=== PATIENT | female | born 1995 | race Caucasian/White ===

== ENCOUNTER → 2018-09-05 06:42 | Observation (INO) ==
[2018-09-05 05:53] LABS: Amphetamine Screen,Urine Negative ng/mL (Cutoff=1000); Barbiturate Screen,Urine Negative ng/mL (Cutoff=200); Benzodiazepines Screen,Urine Negative ng/mL (Cutoff=200); Cannabinoid Screen,Urine Negative ng/mL (Cutoff = 50); Cocaine Screen,Urine Negative ng/mL (Cutoff= 300); Opiate Screen,Urine Negative ng/mL (Cutoff=300); Phencyclidine Screen,Urine Negative ng/mL (Cutoff=25)
--- NOTE | 2018-09-05 06:43 | Discharge Summary ---
Date of Encounter: 09/05/18 Time of Encounter: 06:42 - Discharge Diagnosis (1) 38 weeks gestation of Priority: Primary Status: Acute Comments: Admit to observation for labor evaluation (2) NST (non-stress test) reactive Priority: Secondary Status: Acute Comments: FHR 125 bpm, moderate variability, +15x15 accels, no decels. (3) Uterine contractions during Priority: Secondary Status: Acute Comments: No cervical change in one hour. Irregular contractions - Discharge Medications Prescriptions: No Action Formula Tablet 1 tab PO DAILY Home Medications: Formula Tablet 1 tab PO DAILY 09/05/18 [History] Allergies/Adverse Reactions: Allergy/AdvReac Type Severity Reaction Status Date / Time No Known Allergies Allergy Verified 09/05/18 05:22 Data Procedures and tests throughout hospitalization: Laboratory Tests 09/05/18 05:23 Urine Opiates Screen Negative Ur Barbiturates Screen Negative Ur Phencyclidine Scrn Negative Ur Amphetamines Screen Negative U Benzodiazepines Scrn Negative Urine Cocaine Screen Negative U Marijuana (THC) Screen Negative Ur Drug Screen Interp See Below Labs on day of discharge: Labs from last 24 hours 09/05/18 05:23 Urine Opiates Screen Negative Ur Barbiturates Screen Negative Ur Phencyclidine Scrn Negative Ur Amphetamines Screen Negative U Benzodiazepines Scrn Negative Urine Cocaine Screen Negative U Marijuana (THC) Screen Negative Ur Drug Screen Interp See Below Date of admission: 09/05/18 04:44 Discharging clinician: Yisel Richardson Anticipated date of discharge: 09/05/18 - Patient Status Disposition: Home, Self-Care Condition: Good Functional capacity at discharge: independent ambulation Overall status at discharge: patient is progressing back to baseline - Discharge Instructions Additional Instructions: LABOR AND DELIVERY DISCHARGE INSTRUCTIONS Signs and Symptoms to be Reported to your Doctor Immediately: * Sudden gush, continuous or intermittent lead of fluid from vagina (note the time of gush and color of fluid) * Onset of bright red vaginal bleeding with or without pain (if you had a vaginal exam during this visit you may notice some dark red spotting. This is normal.) * Contractions that are 5 minutes apart (from the beginning of one contraction to the beginning of the next) and last 45-60 seonds; contractions that you can no longer walk, talk or laugh through. * A change in the baby's activity. This could be an increase or decrease in activity. * Severe headache which does not go away with tylenol. * Sudden swelling in the face, hands, arms and/or legs. * Upper abdominal pain - sometimes associated with heartburn or nausea and is not relieved by Maalox, Mylanta or Tums. * Kick Counts __ One hour after a meal, lay down on one side in a quiet place. Count the number of time the baby moves during an hour. 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 She does report positive movement, denies vaginal bleeding and fluid leakage. She made no cervical change while she was here and contractions irregular. She is to follow up as scheduled for routine care. Time Attestation: Total time spent providing and/or coordinating discharge services: Time Spent: Less than 30 minutes Exam - Constitutional General appearance IM: A&O X 3, pleasant, no acute distress, answers questions appropriately - Respiratory Respiratory exam: Present: CTAB - Cardiovascular Cardiovascular exam IM: Present: RRR, +S1, +S2 - GI/Abdominal GI/Abdominal exam IM: normal bowel sounds, soft - Rectal Rectal exam: deferred - External exam: normal external exam - Extremities Exam Extremities exam IM: Present: full ROM, normal capillary refill, normal inspection - Neurological Exam Neurological exam: alert, normal gait, oriented X3 - VTE Reasons for not Prescribing Prophylaxis: Treatment not Indicated - Low risk for VTE
== END | disposition home or self-care (01) ==
LOC: 1NENULAB
PROVIDERS: ADMIT Registered Nurse; ATTEND Registered Nurse

== ENCOUNTER 2018-09-09 05:59 | Inpatient (IN) ==
[2018-09-09] MEDS ORDERED: Naloxone 0.4 MG/ML INJ IVP PRN (06:13)
[2018-09-09] MEDS ORDERED: Ondansetron 4 MG/2 ML VIAL IVP PRN (06:13)
[2018-09-09] MEDS ORDERED: Metoclopramide 10 MG/2 ML VIAL IVP PRN (06:13)
[2018-09-09] MEDS ORDERED: *HR* Nalbuphine 10 MG/ML AMPUL IVP PRN (06:13)
[2018-09-09] MEDS ORDERED: Famotidine 20 MG/2 ML VIAL IVP PRN (06:13)
[2018-09-09] MEDS ORDERED: Ringers Solution, Lactated 1,000 ML IVC SCH (06:15)
[2018-09-09] MEDS ORDERED: Oxytocin 20 units/ LR 1000 mL 20 UNIT/1,000 ML BAG IVC SCH ×2 (06:15→22:00)
[2018-09-09] MEDS ORDERED: Ringers Solution, Lactated 1,000 ML ONE (06:36)
--- NOTE | 2018-09-09 06:41 | Anesthesia Evaluation PreOp ---
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) Other Medical History: Denies Any Significant HX Anesthesia History: No Prior Anesthetic Complications, Past Anesthesia (no family hx.) Alcohol Use: none Drug use: none Medications and Allergies Formula Tablet 1 tab PO DAILY 09/05/18 [History] Allergy/AdvReac Type Severity Reaction Status Date / Time No Known Allergies Allergy Verified 09/05/18 05:22 Anesthesia Exam - HEENT Pupil (Motor): Pupils equal Mallampati: II Teeth: Normal Oral Opening: Greater than 3 - WALLPAPER EMBOSSER HELPER LOC: Oriented WALLPAPER EMBOSSER HELPER Motor: Normal RUE, Normal LUE, Normal RLE, Normal LLE, Normal Face WALLPAPER EMBOSSER HELPER Sensory: Normal: RUE, LUE, RLE, LLE, Face - Cardiac Rhythm: Regular Murmur: None - Pulmonary Breath Sounds: bilateral Clear Respiratory Effort: Symmetrical Anesthesia Assess/Plan ASA Score: 2 Level of consciousness: Cooperative, Oriented Anesthetic Plan: General, Spinal, Epidural Monitoring Plan: Standard Monitors Recovery Plan: PACU
[2018-09-09] MEDS ORDERED: Epidural Premix (fent/bupiv) 110 ML EP SCH (07:00)
[2018-09-09 07:06] LABS: Basophils % 0.3 %; Eosinophils # 0.1 K/mcL (0.0-0.6); Eosinophils % 0.9 %; Hematocrit 32.2 % (35.3-44.9); Hemoglobin 10.7 g/dL (11.5-15.4); Lymphocytes # 2.8 K/mcL (0.6-4.6); Lymphocytes % 24.5 %; Mean Corpuscular HGB Conc 33.2 g/dL (31.6-35.5); Mean Corpuscular Hemoglobin 26.6 pg (28.0-33.3); Mean Corpuscular Volume 80.1 fL (83.0-100.0); Mean Platelet Volume 11.1 fL (9.4-12.4); Monocytes # 0.8 K/mcL (0.0-1.3); Monocytes % 6.9 %; Neutrophils # 7.5 K/mcL (1.6-8.9); Platelet Count 285 K/mcL (140-400); Red Blood Count 4.02 M/mcL (3.82-4.97); Red Cell Distribution Width 13.8 % (11.5-14.5); Segmented Neutrophils % 66.4 %
[2018-09-09 07:12] LABS: Amphetamine Screen,Urine Negative ng/mL (Cutoff=1000); Barbiturate Screen,Urine Negative ng/mL (Cutoff=200); Benzodiazepines Screen,Urine Negative ng/mL (Cutoff=300); Cannabinoid Screen,Urine Negative ng/mL (Cutoff = 50); Cocaine Screen,Urine Negative ng/mL (Cutoff= 300); Opiate Screen,Urine Negative ng/mL (Cutoff=300); Phencyclidine Screen,Urine Negative ng/mL (Cutoff=25)
--- NOTE | 2018-09-09 08:21 | OB/GYN History & Physical ---
Date of Encounter: 09/09/18 Time of Encounter: 08:03 Assessment and Plan (1) 39 weeks gestation of Current visit: Yes Status: Acute (2) Encounter for elective induction of labor Current visit: Yes Status: Acute Risks, benefits, and alternatives again discussed with the patient. Informed consent previously obtained in the office. Procedure for mackey induction discussed with the patient. Mackey catheter is placed transcervically and balloon inflated with 40 ml sterile water just proximal to the internal os History of Present Illness Chief complaint: Patient presents for induction of labor HPI: Ms. Marks is a 23 year old female G 1 at 39 0/7 weeks presents to labor and delivery for induction of labor at 39 weeks. She denies any regular contractions, vaginal bleeding, or leaking fluid. She reports good movement. Her has been uncomplicated. Labs: GBS negative 1 hour GTT 115 Rubella Immune Varicella Immune HIV negative Hep B negative T. pallidum negative Past Med Surg Social Fam HX - Past Medical History Source: patient Medical history: migraine Psychiatric history: no psych history - Past Surgical History Surgical History: no surgical history - Social History Smoking Status: Never smoker Smokeless Tobacco Status: No Alcohol use: none Drug use: none - Family History Father Adopted: No Family Member Ethnicity: Non- Living Status: Still Living Hx Family Cardiac Disorders: Yes Hx Family Respiratory Disorders: No Hx Family Cancer: No Hx Family GI Disorders: No Hx Family Genitourinary Disorders: No Hx Family Endocrine Disorder: No Hx Family Musculoskeletal Disorders: No Hx Family Neuromuscular Disorders: No Hx Family Neurologic Disorders: No Hx Family HEENT Disorders: No Hx Family Autoimmune Disorders: No Hx Family Reproductive Disorders: No Hx Family Psychosocial Disorders: No Hx Family Medical Disorders: No Obstetrical History - Pregnancies : 1 Medications and Allergies Formula Tablet 1 tab PO DAILY 09/05/18 [History] SUMAtriptan succinate [Imitrex] 50 mg PO Q2H 09/09/18 [History] Allergy/AdvReac Type Severity Reaction Status Date / Time No Known Allergies Allergy Verified 09/05/18 05:22 Review of System OB All systems PM: reviewed and no additional remarkable complaints except as stated - Constitutional Constitutional ROS IM: no chills, no fever(s) - Cardiovascular Cardiovascular: no chest pain - Respiratory Respiratory: no dyspnea on exertion - Gastrointestinal Gastrointestinal: no abdominal pain, no nausea, no vomiting - Genitourinary Genitourinary: amenorrhea, no flank pain, no genital lesions, no genital pruritis Exam - Constitutional Constitutional: well developed, well nourished, no acute distress, average body habitus - HEENT HEENT: EOMI - Lungs Respiratory exam: CTAB - Cardiovascular Cardiovascular exam: RRR - Abdomen Abdomen: Present: bowel sounds normal, gravid, non tender - Vulva Vulva: bilateral: normal - Vagina Vagina: Present: normal moisture - Cervix Dilation: 2 Effacement: 70 Station: -2 Results Result Diagrams: 09/09/18 06:57 Abnormal lab results WBC 11.2 K/mcL (4.3-11.1) H 09/09/18 06:57 Hgb 10.7 g/dL (11.5-15.4) L 09/09/18 06:57 Hct 32.2 % (35.3-44.9) L 09/09/18 06:57 MCV 80.1 fL (83.0-100.0) L 09/09/18 06:57 MCH 26.6 pg (28.0-33.3) L 09/09/18 06:57 All other labs normal. US - abdomen: report reviewed (EFW on 09/07/2018 7 lb 14 oz (84%), LAUREEN 15 cm, cephalic), image reviewed - VTE Reasons for not Prescribing Prophylaxis: Treatment not Indicated - Low risk for VTE
[2018-09-09] MEDS ORDERED: Lidocaine -MPF 1% 5 ML AMPUL ONE (11:36)
--- NOTE | 2018-09-09 16:18 | OB Labor Progress Note ---
Date of Encounter: 09/09/18 Time of Encounter: 16:16 Labor Progress Note - Subjective Subjective: Patient reports contractions are manageable - Cervix Cervix: 6/70/-2 - Heart Tones Heart Tones: heart rate category I - Loiza Loiza: Contractions every 2-5 minutes and palpate medium - Interventions Interventions: SVE AROM for moderate amount of clear fluid IUPC placed - Plan Physician notified: Yes Physician notified details: Dr. Pina updated on status of her patient Plan: Continue induction management Frequent position changes with peanut ball Anticipate vaginal delivery
--- NOTE | 2018-09-09 17:21 | Anesthesia Procedures ---
Addendum entered and electronically signed by Steve Vyas CRNA 09/09/18 22:01: Delivery Date: 09/09/18 Infant Delivery Time: 21:12 Original Note: Date of Encounter: 09/09/18 Time of Encounter: 17:20 Procedures: Anesthesia - Epidural/Spinal Patient ID/Chart reviewed: Yes Patient examined: Yes OB Eval: Gestational age: 39 OB Eval: : 1 OB Eval: Hx Para: 0 OB Eval: Dilated at (cm): 6 OB Eval: Contractions: Non-stressed pattern Consent Obtained: Yes Supplemental Oxygen: None/Room Air Site Prep: Aseptic Technique, Sterile prep and drape, Povidone-Iodine 1% Patient position: upright Local Anesthetic: Lidocaine 1% Amount of Local Anesthetic used: 3 Touhy Needle Gauge: 18 Touhy Needle Depth (cm): 9 Catheter Depth at Skin (cm): 20 Test Dose (1.5% Lido + Epi): Volume given (mls): 5 Test Dose Result: Negative Loading Dose: Other: 10mls of epidural pharm bag premix solution Loading Dose Administered: Thru Catheter Infusion Med: 0.125% Bupivacaine w/ 2 mcg/ml Fentanyl Infusion Rate (mls/hr): 14 ([id number]) Catheter Secured in Place: Tegaderm, Tape Interspace Used: L3-L4 Loss of Resistance (NIRAJ): Yes Blood: No CSF: No Paresthesia: No Procedure: pt tolerated procedure well. no complications. vss. fhr stable.
[2018-09-09] MEDS ORDERED: *HR* Ropivacaine/PF 0.2% 20 ML VIAL ONE (17:23)
[2018-09-09] MEDS ORDERED: Lidocaine/EPI 1:200k 2% PF 20 ML VIAL ONE (17:34)
[2018-09-09] MEDS ORDERED: *HR* FentaNYL (PF) 100 MCG/2 ML VIAL ONE (17:34)
--- NOTE | 2018-09-09 17:42 | Anesthesia Progress Note ---
Date of Encounter: 09/09/18 Time of Encounter: 17:41 Anesthesia Note - Note Note: 09/09/18 17:41 called for increased pain during contractions. pain 7/10. bolus of 4ml of 2% lidocaine and 4ml of 0.2% ropivacaine and 100mcg fentanyl given after negative aspiration. gtt increased to 18ml/hr.
--- NOTE | 2018-09-09 21:49 | OB/GYN Procedure Note ---
Delivery - Delivery Date: 09/09/18 Provider: Zhane Pina Intrapartum events: none Delivery induction: AROM, oxytocin, mackey Delivery monitor: external FHT, external uterine, internal uterine Anesthesia: epidural Quantitated Blood Loss: 200 - (s) Infant A Infant Delivery Date: 09/09/18 Infant Delivery Time: 21:12 Presentation: vertex Position: GERMAN Route of delivery: Gender: Female Viability: Viable Pounds: 7 Ounces: 12 Weight Gram: 3.52 kg at 1 minute: 8 at 5 mins: 9 Shoulder Dystocia: not encountered Specimens collected: cord blood Placenta: spontaneous Cord: 3 umbilical vessels - Repair Episiotomy: none Laceration Description: Perineal - 2nd Degree - Complications Delivery complications: none Delivery comments: Called to room with patient complete and +2 station. Under maternal effort she delivered a viable female weighing 7 lbs. 12 oz. and Apgars 8 and 9 at one and 5 minutes respectively over second-degree perineal laceration. Following delivery of the head there was no nuchal cord or shoulder dystocia encountered. Infant delivered with maternal effort and was placed on mom's abdomen. Cord was allowed to cease pulsations and then was double clamped and cut with assistance from the father of the baby. Cord blood was collected. Placenta delivered spontaneously, complete, and intact with a three-vessel cord. Second-degree perineal laceration was repaired using 201 3-0 Vicryl in standard fashion. Bilateral periurethral lacerations were noted and hemostatic without repair. Rectal exam was performed to ensure integrity. Sponge and needle counts are correct at the end of procedure. Mother and infant are recovering in the LDR in stable condition. - Disposition Mom disposition: stable in LDR disposition: stable in LDR
[2018-09-09] MEDS ORDERED: Acetaminophen 325 MG TABLET PO PRN (22:00)
[2018-09-09] MEDS ORDERED: Oxytocin 20 units/ LR 1000 mL 20 UNIT/1,000 ML BAG IVC ONE (22:04)
[2018-09-10] MEDS ORDERED: Benzocaine/Menthol 56 GM AEROSOL SPRAY TP PRN (00:55)
[2018-09-10] MEDS: Prenatal Vit/FA 1 EACH TABLET PO SCH (07:48)
[2018-09-10] MEDS: Ibuprofen 600 MG TABLET PO PRN ×2 (09:54→19:05)
--- NOTE | 2018-09-10 13:56 | OB/GYN Progress Note ---
Date of Encounter: 09/10/18 Time of Encounter: 13:52 - Assessment and Plan (1) Vaginal delivery Current Visit: Yes Status: Acute Stable PPD#1 Continue current management Anticipate discharge tomorrow Subjective - Subjective Patient reports: appetite normal, voiding normally, pain well controlled, ambulating normally Objective - Latest Vital Signs Latest vital signs: Vital Signs Temp Pulse Resp BP Pulse Ox 09/10/18 02:15 98.8 F 108 18 119/72 98 09/10/18 01:15 99.9 F H 102 18 115/71 99 09/10/18 00:15 98.4 F 91 16 121/76 98 Intake and Output 09/09/18 09/10/18 09/10/18 23:59 07:59 15:59 Output Total 800 / 800 Balance -800 / -800 Output: Urine 800 / 800 - Exam Chest: Normal S1, Normal S2 Extremities: Present: normal Abdomen: Present: soft Uterus: Present: firm Uterus Position: At Umbilicus
[2018-09-11] MEDS: Ibuprofen 600 MG TABLET PO PRN (01:17)
[2018-09-11] MEDS: Prenatal Vit/FA 1 EACH TABLET PO SCH (07:57)
[2018-09-11 08:53] VITALS: BP 116/77
--- NOTE | 2018-09-11 11:02 | Discharge Summary ---
Date of Encounter: 09/11/18 Time of Encounter: 11:00 - Discharge Diagnosis (1) Vaginal delivery Priority: Primary Status: Acute Comments: Patient meeting day one milestones. Pain well-controlled with prescribed medications. Voiding without difficulty, tolerating regular diet, bleeding light to moderate.. No bowel movement yet. Anticipate discharge today (2) Breast feeding status of mother Priority: Secondary Status: Acute Comments: support as needed. We will provide patient with a breast pump prescription (3) Second degree perineal laceration Priority: Secondary Status: Acute Comments: Motrin, Dermoplast, ice packs for discomfort Patient reports the Motrin is not completely taking care of her pain but declines any stronger medication. - Discharge Medications Prescriptions: New Breast Pump [BREAST PUMP] 1 each .ROUTE AD #1 each Docusate [Colace] 100 mg PO BID capsule Benzocaine/Menthol Champion [Dermoplast Champion] 1 appl TP QID PRN aerosol PRN Reason: See Comments Ibuprofen [Motrin] 600 mg PO Q6HR PRN #60 tablet PRN Reason: Cramping Acetaminophen [Tylenol] 650 mg PO Q6HR PRN tablet PRN Reason: Mild Pain Continued Formula Tablet 1 tab PO DAILY SUMAtriptan succinate [Imitrex] 50 mg PO Q2H Home Medications: Formula Tablet 1 tab PO DAILY 09/05/18 [History] SUMAtriptan succinate [Imitrex] 50 mg PO Q2H 09/09/18 [History] Acetaminophen [Tylenol] 650 mg PO Q6HR PRN tablet 09/11/18 [Rx] Benzocaine/Menthol Champion [Dermoplast Champion] 1 appl TP QID PRN aerosol 09/11/18 [Rx] Breast Pump [BREAST PUMP] 1 each .ROUTE AD #1 each 09/11/18 [Rx] Docusate [Colace] 100 mg PO BID capsule 09/11/18 [Rx] Ibuprofen [Motrin] 600 mg PO Q6HR PRN #60 tablet 09/11/18 [Rx] Allergies/Adverse Reactions: Allergy/AdvReac Type Severity Reaction Status Date / Time No Known Allergies Allergy Verified 09/05/18 05:22 Data Procedures and tests throughout hospitalization: Laboratory Tests 09/09/18 09/09/18 06:57 06:57 WBC 11.2 H RBC 4.02 Hgb 10.7 L Hct 32.2 L MCV 80.1 L MCH 26.6 L MCHC 33.2 RDW 13.8 Plt Count 285 MPV 11.1 Immature Gran % 1.0 Seg Neutrophils % 66.4 Lymphocytes % 24.5 Monocytes % 6.9 Eosinophils % 0.9 Basophils % 0.3 Neutrophils # 7.5 Lymphocytes # 2.8 Monocytes # 0.8 Eosinophils # 0.1 Basophils # 0.0 Urine Opiates Screen Negative Ur Barbiturates Screen Negative Ur Phencyclidine Scrn Negative Ur Amphetamines Screen Negative U Benzodiazepines Scrn Negative Urine Cocaine Screen Negative U Marijuana (THC) Screen Negative Ur Drug Screen Interp See Below Date of admission: 09/09/18 05:59 Primary care physician: PCP NONE Consults: 09/09/18 22:00 Consult to Service Order Expediter [CONS] Routine Comment: Vaginal delivery, consult needed Discharging clinician: Yisel Richardson Anticipated date of discharge: 09/11/18 - Patient Status Disposition: Home, Self-Care Condition: Good Functional capacity at discharge: independent ambulation Overall status at discharge: patient is progressing back to baseline - Discharge Instructions Follow Up With: NONE,PCP [Primary Care Provider] - - Diet and Activity Activity: resume usual activities as tolerated Diet: regular diet Hospital Course Reason for admission: induction of labor, IUP at term Delivery: Episiotomy: none Laceration: 2nd degree Other procedures: none complications: none Discharge diagnosis: IUP at term delivered baby: female Hospital course: Delivery Date: 09/09/18 Provider: Zhane Pina Intrapartum events: none Delivery induction: AROM, oxytocin, mackey Delivery monitor: external FHT, external uterine, internal uterine Anesthesia: epidural Quantitated Blood Loss: 200 - (s) Infant A Infant Delivery Date: 09/09/18 Infant Delivery Time: 21:12 Presentation: vertex Position: GERMAN Route of delivery: Gender: Female Viability: Viable Pounds: 7 Ounces: 12 Weight Gram: 3.52 kg at 1 minute: 8 at 5 mins: 9 Shoulder Dystocia: not encountered Specimens collected: cord blood Placenta: spontaneous Cord: 3 umbilical vessels - Repair Episiotomy: none Laceration Description: Perineal - 2nd Degree - Complications Delivery complications: none Delivery comments: Called to room with patient complete and +2 station. Under maternal effort she delivered a viable female weighing 7 lbs. 12 oz. and Apgars 8 and 9 at one and 5 minutes respectively over second-degree perineal laceration. Following delivery of the head there was no nuchal cord or shoulder dystocia encountered. Infant delivered with maternal effort and was placed on mom's abdomen. Cord was allowed to cease pulsations and then was double clamped and cut with assistance from the father of the baby. Cord blood was collected. Placenta delivered spontaneously, complete, and intact with a three-vessel cord. Second-degree perineal laceration was repaired using 201 3-0 Vicryl in standard fashion. Bilateral periurethral lacerations were noted and hemostatic without repair. Rectal exam was performed to ensure integrity. Sponge and needle counts are correct at the end of procedure. Mother and infant are recovering in the LDR in stable condition. - Disposition Mom disposition: stable in LDR disposition: stable in LDR Time Attestation: Total time spent providing and/or coordinating discharge services: Time Spent: Less than 30 minutes Exam - Constitutional Vitals: Temp Pulse Resp BP Pulse Ox 97.9 F 91 14 116/77 99 09/11/18 08:52 09/11/18 08:52 09/11/18 08:52 09/11/18 08:52 09/11/18 08:52 General appearance IM: A&O X 3, pleasant, no acute distress, answers questions appropriately - Respiratory Respiratory exam: Present: CTAB - Cardiovascular Cardiovascular exam IM: Present: RRR, +S1, +S2 - GI/Abdominal GI/Abdominal exam IM: normal bowel sounds, soft - Rectal Rectal exam: deferred - External exam: normal external exam Uterine Tone: Firm Uterus Position: At Umbilicus, Midline - Extremities Exam Extremities exam IM: Present: full ROM, normal capillary refill, normal inspection - Neurological Exam Neurological exam: alert, normal gait, oriented X3 - Psychiatric Additional comments: Patient is teary this morning due to her needing to be placed under bili lights.
== END 2018-09-11 12:32 | disposition home or self-care (01) | DRG 560 ==
LOC: 1NENULAB 05:59 → 1NENUOBS 09-10 00:34
PROVIDERS: ADMIT Obstetrics & Gynecology; ATTEND Obstetrics & Gynecology

== ENCOUNTER 2020-05-13 18:18 | Observation (INO) | END 2020-05-13 19:50 | disposition home or self-care (01) | LOC: 1NENULAB | PROVIDERS: ADMIT Obstetrics & Gynecology; ATTEND Obstetrics & Gynecology ==

== ENCOUNTER 2020-05-25 23:37 | Inpatient (IN) ==
[~2020-05-25 23:37] MED LIST: *HR* FentaNYL (PF) 100 MCG/2 ML VIAL IVP PRN; Azithromycin 500 MG in 0.9 % Sodium Chloride 250 ML IVPB ONE; Famotidine 20 MG/2 ML VIAL IVP PRN; Lidocaine 1% 20 ML MDV INFILT PRN; Metoclopramide 10 MG/2 ML VIAL IVP PRN; Naloxone 0.4 MG/ML INJ IVP PRN; Ondansetron 4 MG/2 ML VIAL IVP PRN; Penicillin G Potassium 5,000,000 UNIT in 0.9 % Sodium Chloride Mini Bag 100 ML IVPB ONE
[2020-05-25] MEDS ORDERED: Ringers Solution, Lactated 1,000 ML IVC SCH (23:45)
[2020-05-26 00:50] LABS: Basophils % 0.3 %; Eosinophils # 0.1 K/mcL (0.0-0.6); Eosinophils % 0.5 %; Hematocrit 34.3 % (35.3-44.9); Hemoglobin 10.8 g/dL (11.5-15.4); Immature Granulocytes % 0.6 % (0-4); Lymphocytes % 16.9 %; Mean Corpuscular HGB Conc 31.5 g/dL (31.6-35.5); Mean Corpuscular Hemoglobin 25.1 pg (28.0-33.3); Mean Corpuscular Volume 79.8 fL (83.0-100.0); Mean Platelet Volume 10.6 fL (9.4-12.4); Monocytes # 0.7 K/mcL (0.0-1.3); Monocytes % 6.1 %; Neutrophils # 8.8 K/mcL (1.6-8.9); Platelet Count 244 K/mcL (140-400); Red Cell Distribution Width 14.2 % (11.5-14.5); Segmented Neutrophils % 75.6 %; White Blood Count 11.7 K/mcL (4.3-11.1)
[2020-05-26 00:58] LABS: Amphetamine Screen,Urine Negative ng/mL (Cutoff=1000); Barbiturate Screen,Urine Negative ng/mL (Cutoff=200); Benzodiazepines Screen,Urine Negative ng/mL (Cutoff=200); Cannabinoid Screen,Urine Negative ng/mL (Cutoff = 50); Cocaine Screen,Urine Negative ng/mL (Cutoff= 300); Opiate Screen,Urine Negative ng/mL (Cutoff=300); Phencyclidine Screen,Urine Negative ng/mL (Cutoff=25)
[2020-05-26] MEDS ORDERED: Penicillin G Potassium 2,500,000 UNIT/105 ML MLS IVPB SCH (04:00)
[2020-05-26] MEDS ORDERED: EPHEDrine 50 MG/ML VIAL IVP PRN (07:16)
[2020-05-26] MEDS ORDERED: Epidural Premix (fent/bupiv) 110 ML EP SCH (07:30)
[2020-05-26] MEDS ORDERED: Oxytocin 20 units/ LR 1000 mL 20 UNIT/1,000 ML BAG IVC ONE (13:25)
[2020-05-26] MEDS ORDERED: Lanolin 7 G OINT...G. TP PRN (14:11)
[2020-05-26] MEDS ORDERED: Acetaminophen 325 MG TABLET PO PRN (14:11)
[2020-05-26] MEDS ORDERED: *HR* HYDROcodone/Acet 5/325 mg TABLET PO PRN (14:11)
[2020-05-26] MEDS ORDERED: Benzocaine/Menthol 56 GM AEROSOL SPRAY TP PRN (14:11)
[2020-05-26] MEDS ORDERED: Oxytocin 20 units/ LR 1000 mL 20 UNIT/1,000 ML BAG IVC SCH (14:11)
[2020-05-26] MEDS: Ibuprofen 600 MG TABLET PO PRN ×2 (16:15→22:48)
[2020-05-27 07:47] VITALS: BP 131/89
[2020-05-27] MEDS: Ibuprofen 600 MG TABLET PO PRN (08:02)
[2020-05-27] MEDS ORDERED: Prenatal Vit/FA 1 EACH TABLET PO SCH (09:00)
== END 2020-05-27 15:00 | disposition home or self-care (01) | DRG 560 ==
LOC: 1NENULAB → 1NENUOBS 05-26 15:32
PROVIDERS: ADMIT Obstetrics & Gynecology; ATTEND Obstetrics & Gynecology